=== PATIENT | female | born 1970 | race Caucasian/White ===

== ENCOUNTER 2021-05-17 03:46 | Emergency (ER) | payer SELFPAY ==
[~2021-05-17] VITALS: Ht 154.9 cm; Wt 46.7 kg
--- NOTE | 2021-05-17 04:00 | NUR ---
PATIENT BIBS FOR BRIGHT RED BLOOD IN STOOL AFTER BM. PATIENT IS A/OX4, RR EVEN AND UNLABORED, NO SIGNS OF SOB, PATIENT DENIES ABD PAIN AT THIS TIME. PATIENT CONNCETED TO ORDER MAKE UP CLERK AND POX.
[2021-05-17 04:06] LABS: BASOPHILS # (AUTO) 0.1 /CMM (0.0-0.2); BASOPHILS % (AUTO) 0.6 % (0.0-2.0); EOSINOPHILS % (AUTO) 2.3 % (0.0-6.0); HEMATOCRIT 41 % (33-45); LYMPHOCYTES # (AUTO) 2.3 /CMM (0.8-4.8); LYMPHOCYTES % (AUTO) 19.3 % (20.0-44.0); MEAN CORPUSCULAR HGB CONC 34 g/dl (31.0-36.0); MEAN CORPUSCULAR VOLUME 94 fL (82-100); MONOCYTES # (AUTO) 1.1 /CMM (0.1-1.30); MONOCYTES % (AUTO) 9.2 % (2.0-12.0); NEUTROPHILS # (AUTO) 8.2 /CMM (1.8-8.9); NEUTROPHILS % (AUTO) 68.6 % (43.0-81.0); PLATELET COUNT (AUTO) 426 /CMM (150-450)
--- NOTE | 2021-05-17 04:15 | NUR ---
PATIENT BROUGHT TO CT
[2021-05-17 04:16] LABS: CALCIUM, SERUM 9.2 mg/dL (8.5-10.1); CREATININE 0.7 mg/dL (0.6-1.3); POTASSIUM 3.5 mmol/L (3.5-5.1)
[2021-05-17 04:25] LABS: ALBUMIN 4.2 g/dL (3.4-5.0); BILIRUBIN,DIRECT 0.1 mg/dL (0.0-0.2); BILIRUBIN,TOTAL 0.2 mg/dL (0.2-1.0); TOTAL PROTEIN, SERUM 8.5 g/dL (6.4-8.2)
[2021-05-17] MEDS ORDERED: IOHEXOL-300 100 ML VIAL IV ONE (04:28)
[2021-05-17] MEDS ORDERED: CT SWABBABLE VALVE TRANS SET 1 EA INFUS.SET MC ONE (04:28)
[2021-05-17] MEDS ORDERED: IV NS 0.9% 250 ML IV ONE (04:28)
[2021-05-17 05:59] VITALS: BP 112/84
--- NOTE | 2021-05-17 06:05 | NUR ---
Patient discharged to home in stable condition. Written and verbal after care instructions given. Patient verbalizes understanding of instruction.
== END 2021-05-17 06:05 | disposition home or self-care (01) ==
LOC: ER 03:51
DX: K92.2 Gastrointestinal hemorrhage, unspecified (principal)
CPT/HCPCS: 36415; 74177; 80048; 80076; 85025; 85730; 99285; J7050; Q9967

== ENCOUNTER 2021-07-07 13:44 | Emergency (ER) | payer MEDICAID ==
[~2021-07-07] VITALS: Ht 154.9 cm; Wt 47.6 kg
[2021-07-07 13:57] VITALS: BP 113/83
[2021-07-07] MEDS ORDERED: LORA10TA68 PO (15:21)
[2021-07-07] MEDS ORDERED: KETO5DRO72 EACHEYE (15:21)
[2021-07-07] MEDS ORDERED: AMOX-430 PO (15:21)
[2021-07-07] MEDS ORDERED: SODI88SP18 NS (15:21)
[2021-07-07] MEDS ORDERED: FLUT9.9S NS (15:29)
--- NOTE | 2021-07-07 15:35 | NUR ---
Patient discharged to home in stable condition. Written and verbal after care instructions given. Patient verbalizes understanding of instruction.
== END 2021-07-07 15:35 | disposition home or self-care (01) ==
LOC: ER 13:51
DX: J32.9 Chronic sinusitis, unspecified (principal); T78.40XA Allergy, unspecified, initial encounter; J45.909 Unspecified asthma, uncomplicated; F12.90 Cannabis use, unspecified, uncomplicated; Z60.2 Problems related to living alone; Z79.899 Other long term (current) drug therapy; X58.XXXA Exposure to other specified factors, initial encounter

== ENCOUNTER 2022-09-12 11:55 | Emergency (ER) | payer MEDICAID, OTHER ==
[~2022-09-12] VITALS: Ht 154.9 cm; Wt 43.5 kg
[~2022-09-12 11:55] MED LIST: AMOX-430 PO; FLUT9.9S NS; KETO5DRO72 EACHEYE; LORA10TA68 PO; SODI88SP18 NS
--- NOTE | 2022-09-12 12:10 | NUR ---
CALLED TO TRIAGE NO ANSWER
--- NOTE | 2022-09-12 12:25 | NUR ---
CALLED TO TRIAGE, NO ANSWER
--- NOTE | 2022-09-12 12:35 | NUR ---
CALLED TO TRIAGE NO ANSWER
[2022-09-12 13:16] VITALS: BP 137/83
[2022-09-12] MEDS ORDERED: OLOP2.5D12 EACHEYE (13:24)
[2022-09-12] MEDS ORDERED: FLUT15.87 NS (13:24)
[2022-09-12] MEDS ORDERED: LORA10TA7 PO (13:24)
--- NOTE | 2022-09-12 13:44 | NUR ---
Patient discharged to home in stable condition. Written and verbal after care instructions given. Patient verbalizes understanding of instruction.
== END 2022-09-12 13:45 | disposition home or self-care (01) ==
LOC: ER 11:58
DX: S80.862A Insect bite (nonvenomous), left lower leg, initial encounter (principal); S80.861A Insect bite (nonvenomous), right lower leg, initial encounter; S20.369A Insect bite (nonvenomous) of unspecified front wall of thorax, initial encounter; J45.909 Unspecified asthma, uncomplicated; F17.200 Nicotine dependence, unspecified, uncomplicated; Z60.2 Problems related to living alone; Z79.899 Other long term (current) drug therapy; W57.XXXA Bitten or stung by nonvenomous insect and other nonvenomous arthropods, initial encounter; Y93.89 Activity, other specified; Y92.89 Other specified places as the place of occurrence of the external cause; Y99.8 Other external cause status

== ENCOUNTER 2022-12-24 20:49 | Emergency (ER) | payer OTHER ==
[~2022-12-24] VITALS: Ht 154.9 cm; Wt 45.4 kg
[~2022-12-24 20:49] MED LIST changes: +FLUT15.87 NS; +LORA10TA7 PO; +OLOP2.5D12 EACHEYE
--- NOTE | 2022-12-24 21:00 | NUR ---
BIBS FROM HOME. REQUESTING FOR FLONASE REFILL & R EAR PAIN. TOLERATING R/A WELL WITH NO RESP DISTRESS,
[2022-12-24] MEDS ORDERED: FLUT9.9S NS (21:10)
[2022-12-24] MEDS ORDERED: LORA10TA7 PO (21:10)
[2022-12-24 21:12] VITALS: BP 120/70
--- NOTE | 2022-12-24 21:14 | NUR ---
Patient discharged to home in stable condition. Rx written and verbal after care instructions given. Patient verbalizes understanding of instruction. Pt ambulatory with a steady gait.
== END 2022-12-24 21:15 | disposition home or self-care (01) ==
LOC: ER 20:50
DX: J30.9 Allergic rhinitis, unspecified (principal); Z76.0 Encounter for issue of repeat prescription; Z60.2 Problems related to living alone; F17.200 Nicotine dependence, unspecified, uncomplicated; Z79.899 Other long term (current) drug therapy

== ENCOUNTER 2023-01-13 02:10 | Emergency (ER) | payer OTHER ==
[~2023-01-13] VITALS: Ht 154.9 cm; Wt 47.6 kg
[2023-01-13 02:27] VITALS: BP 162/88
[2023-01-13] MEDS ORDERED: OLOP2.5D6 OP (03:04)
[2023-01-13] MEDS ORDERED: AMOX-430 PO (03:04)
[2023-01-13] MEDS ORDERED: MINE50OI TP (03:04)
--- NOTE | 2023-01-13 03:28 | NUR ---
Patient discharged to home in stable condition. Written and verbal after care instructions given. Patient verbalizes understanding of instruction.
== END 2023-01-13 03:29 | disposition home or self-care (01) ==
LOC: ER 02:15
DX: S51.851A Open bite of right forearm, initial encounter (principal); L74.0 Miliaria rubra; J45.909 Unspecified asthma, uncomplicated; E11.9 Type 2 diabetes mellitus without complications; F17.200 Nicotine dependence, unspecified, uncomplicated; Z79.899 Other long term (current) drug therapy; W55.01XA Bitten by cat, initial encounter; Y93.89 Activity, other specified; Y92.89 Other specified places as the place of occurrence of the external cause; Y99.8 Other external cause status

== ENCOUNTER 2023-01-15 16:39 | Emergency (ER) | payer OTHER ==
[~2023-01-15 16:39] MED LIST changes: +MINE50OI TP; +OLOP2.5D6 OP
--- NOTE | 2023-01-15 17:00 | NUR ---
multiple calls no response- [facility]
--- NOTE | 2023-01-15 17:39 | NUR ---
multiple calls no response- [facility]
--- NOTE | 2023-01-15 18:59 | NUR ---
CALLED- NO RESPONSE
== END 2023-01-15 18:59 | disposition home or self-care (01) ==
LOC: ER 16:46
DX: Z53.21 Procedure and treatment not carried out due to patient leaving prior to being seen by health care provider (principal)

== ENCOUNTER 2023-04-19 06:46 | Emergency (ER) | payer MEDICAID, OTHER ==
[~2023-04-19] VITALS: Ht 154.9 cm; Wt 45.4 kg
--- NOTE | 2023-04-19 07:00 | NUR ---
PT BIBA FOR RIGHT WRIST SWELLING. A/O X 3, ABLE TO MAKE NEEDS KNOWN, TOLERATING WELL ON ROOM AIR. WILL CONTINUE TO MONITOR.
--- NOTE | 2023-04-19 07:30 | NUR ---
BLOOD SAMPLES OBTAINED
[2023-04-19] MEDS ORDERED: PIPERACILLIN /TAZOBACTAM 3.375 G in IV D5W 50 ML IV ONE (08:00)
[2023-04-19 08:20] LABS: CALCIUM, SERUM 8.9 mg/dL (8.5-10.1); CREATININE 0.8 mg/dL (0.6-1.3); POTASSIUM 3.1 mmol/L (3.5-5.1)
[2023-04-19 08:21] LABS: BASOPHILS # (AUTO) 0.1 K/uL (0.0-0.2); BASOPHILS % (AUTO) 1.2 % (0.0-2.0); EOSINOPHILS % (AUTO) 3.1 % (0.0-6.0); HEMATOCRIT 40 % (33-45); HEMOGLOBIN 13.5 g/dL (11.5-14.8); LYMPHOCYTES # (AUTO) 2.5 K/uL (0.8-4.8); MEAN CORPUSCULAR HGB CONC 34 g/dl (31.0-36.0); MEAN CORPUSCULAR VOLUME 98 fL (82-100); MONOCYTES # (AUTO) 0.9 K/uL (0.1-1.30); MONOCYTES % (AUTO) 11.6 % (2.0-12.0); NEUTROPHILS # (AUTO) 4.3 K/uL (1.8-8.9); NEUTROPHILS % (AUTO) 53.1 % (43.0-81.0); PLATELET COUNT (AUTO) 454 K/uL (150-450); RED BLOOD CELL COUNT(AUTO) 4.12 MIL/uL (4.0-5.2); WHITE BLOOD COUNT (AUTO) 8.2 K/uL (4.3-11.0)
[2023-04-19] MEDS ORDERED: POTASSIUM CHLORIDE 20 MEQ TAB.PRT.SR PO ONE ×2 (08:30→08:50)
--- NOTE | 2023-04-19 08:37 | NUR ---
RIGHT HAND 22 g SL
[2023-04-19] MEDS ORDERED: AMOX-430 PO ×2 (09:02→09:29)
[2023-04-19] MEDS ORDERED: FLUT16SP16 BNOSTRILS (09:29)
[2023-04-19 09:39] VITALS: BP 122/76
== END 2023-04-19 09:40 | disposition home or self-care (01) ==
LOC: ER 06:49
DX: S50.11XA Contusion of right forearm, initial encounter (principal); S51.851A Open bite of right forearm, initial encounter; J44.9 Chronic obstructive pulmonary disease, unspecified; E11.9 Type 2 diabetes mellitus without complications; F17.200 Nicotine dependence, unspecified, uncomplicated; Z79.899 Other long term (current) drug therapy; Z88.8 Allergy status to other drugs, medicaments and biological substances; W55.01XA Bitten by cat, initial encounter; Y93.89 Activity, other specified; Y92.89 Other specified places as the place of occurrence of the external cause; Y99.8 Other external cause status
CPT/HCPCS: 99284; 96365; 73090; 85025; 80048; 36415; J2543; J7060

== ENCOUNTER → 2024-12-05 | Emergency (ER) | payer MEDICAID ==
[~2024-12-05] VITALS: Ht 154.9 cm; Wt 45.4 kg
[~2024-12-05] MED LIST changes: +CETI1TAB9 PO; +FLUT16SP16 BNOSTRILS
[2024-12-05 06:50] VITALS: BP 128/87; TEMP 98; O2SAT 98
== END ==
LOC: ER 05:54
DX: J06.9 Acute upper respiratory infection, unspecified (principal); J44.9 Chronic obstructive pulmonary disease, unspecified; E11.9 Type 2 diabetes mellitus without complications; F12.90 Cannabis use, unspecified, uncomplicated; F17.200 Nicotine dependence, unspecified, uncomplicated; Z59.00 Homelessness unspecified

== ENCOUNTER 2025-02-06 11:45 | Emergency (ER) | payer MEDICAID ==
[~2025-02-06] VITALS: Ht 154.9 cm; Wt 45.4 kg
[2025-02-06 11:55] VITALS: BP 131/89; TEMP 98.3
[2025-02-06 12:41] VITALS: O2SAT 98
== END 2025-02-06 12:41 | disposition home or self-care (01) ==
LOC: ER 11:48
DX: F22 Delusional disorders (principal); E11.9 Type 2 diabetes mellitus without complications; F12.90 Cannabis use, unspecified, uncomplicated; F17.200 Nicotine dependence, unspecified, uncomplicated

== ENCOUNTER 2025-03-15 23:05 | Emergency (ER) | payer MEDICAID ==
[~2025-03-15] VITALS: Ht 154.9 cm; Wt 43.1 kg
[2025-03-16] VITALS: TEMP 97.9
[2025-03-16] MEDS ORDERED: SORBITOL SOLUTION 70% 30 ML SOLUTION ONE (00:32)
[2025-03-16] MEDS: SORBITOL SOLUTION 70% 30 ML SOLUTION PO ONE (00:47)
[2025-03-16 00:50] LABS: BASOPHILS % (AUTO) 0.2 % (0.0-2.0); EOSINOPHILS # (AUTO) 0.3 K/uL (0.0-0.7); EOSINOPHILS % (AUTO) 3.8 % (0.0-6.0); HEMATOCRIT 41 % (33-45); LYMPHOCYTES # (AUTO) 2.4 K/uL (0.8-4.8); LYMPHOCYTES % (AUTO) 29.7 % (20.0-44.0); MEAN CORPUSCULAR HEMOGLOBIN 31 PG (26.0-33.0); MEAN CORPUSCULAR HGB CONC 34 g/dl (31.0-36.0); MEAN CORPUSCULAR VOLUME 92 fL (82-100); MONOCYTES # (AUTO) 0.8 K/uL (0.1-1.30); MONOCYTES % (AUTO) 10.4 % (2.0-12.0); NEUTROPHILS # (AUTO) 4.5 K/uL (1.8-8.9); NEUTROPHILS % (AUTO) 55.9 % (43.0-81.0); PLATELET COUNT (AUTO) 494 K/uL (150-450); RED BLOOD CELL COUNT(AUTO) 4.47 MIL/uL (4.0-5.2); RED CELL DISTRIBUTION WIDTH 15.3 % (11.5-15.0)
[2025-03-16 00:59] LABS: CALCIUM, SERUM 9.4 mg/dL (8.5-10.1); CREATININE 0.8 mg/dL (0.6-1.3); POTASSIUM 3.3 mmol/L (3.5-5.1)
[2025-03-16 01:09] LABS: APPEARANCE,URINE TURBID (CLEAR); BILIRUBIN,URINE NEGATIVE (NEGATIVE); BLOOD, URINE TRACE-INTA Ery/uL (NEGATIVE); COLOR,URINE DARK YELLOW (YELLOW); KETONES,URINE NEGATIVE (NEGATIVE); LEUKOCYTE ESTERASE ,URINE 1+ (NEGATIVE); NITRITE, URINE NEGATIVE (NEGATIVE); PROTEIN,URINE NEGATIVE (NEGATIVE); UGLUCOSE NEGATIVE (NEGATIVE)
[2025-03-16 01:11] LABS: ADD URINE CULTURE YES; BACTERIA,URINE Moderate /HPF (None Seen); SQUAMOUS EPITHELIAL CELL,UR Rare /HPF (None Seen); WBC,URINE 21-50 /HPF (0-3)
[2025-03-16] MEDS ORDERED: CEPH-570 PO (01:19)
[2025-03-16] MEDS ORDERED: IBUP-1490 PO (01:19)
[2025-03-16] MEDS ORDERED: POLY119P3 PO (01:19)
[2025-03-16] MEDS ORDERED: CEPHALEXIN MONOHYDRATE 500 MG CAPSULE PO ONE (01:28)
[2025-03-16] MEDS: CEPHALEXIN MONOHYDRATE 500 MG CAPSULE PO ONE (01:32)
[2025-03-16 06:20] VITALS: BP 128/72; O2SAT 100
== END 2025-03-16 06:20 | disposition home or self-care (01) ==
LOC: ER 23:12
DX: N39.0 Urinary tract infection, site not specified (principal); K59.00 Constipation, unspecified; F17.200 Nicotine dependence, unspecified, uncomplicated; F12.90 Cannabis use, unspecified, uncomplicated; E11.9 Type 2 diabetes mellitus without complications; Z88.5 Allergy status to narcotic agent; Z79.899 Other long term (current) drug therapy
CPT/HCPCS: 36415; 74021; 80048-TC; 81001; 85025-TC; 87086-TC; 87186-TC